=== PATIENT | female | born 1975 | race Caucasian/White ===

== ENCOUNTER 2018-03-27 17:41 | Emergency (ER) | payer SELFPAY ==
[~2018-03-27] VITALS: Ht 162.6 cm; Wt 86.2 kg
[2018-03-27 18:10] VITALS: BP 133/86
[2018-03-27] MEDS ORDERED: LIDOCAINE 1% HCL (LOCAL ANESTH.) INJ 20ML MDV ONE (21:27)
[2018-03-27] MEDS ORDERED: cefTRIAXone SOD 1,000 MG VL IM ONE (21:30)
[2018-03-27] MEDS ORDERED: LIDOCAINE 1% HCL (LOCAL ANESTH.) INJ 20ML MDV IJ ONE (21:45)
== END 2018-03-27 22:10 | disposition home or self-care (01) ==
LOC: ER 17:48
DX: L02.415 Cutaneous abscess of right lower limb (principal)
CPT/HCPCS: 96372; 99283; J0696; J2001